=== PATIENT | female | born 1995 | race Caucasian/White ===

== ENCOUNTER → 2022-08-24 | Outpatient (CLI) | payer BC, SELFPAY ==
[2022-08-24 18:01] LABS: Absolute Lymphocyte Count 2.43 X10^3/uL (0.83-4.51); Basophil# 0.04 X10^3/uL; Basophil% 0.7 % (0-1); Eosinophil# 0.07 X10^3/uL; Eosinophils% 1.2 % (0-5); Hematocrit 43.2 % (37-47); Hemoglobin 15.1 g/dL (12.0-15.0); Lymphocyte # 2.43 X10^3/ul (0.83-4.51); Lymphocyte % 41.6 % (19-41); Mean Corpuscular Hgb 31.5 pg (27.0-32.0); Mean Corpuscular Volume 90.2 fL (81-99); Mean Platelet Vol. 11.8 fl (6.2-12.0); Monocyte# 0.34 X10^3/uL; Monocyte% 5.8 % (0-10); NRBC Flagged by Analyzer 0 % (0-5); Neutrophil # 2.95 X10^3/uL (2.7-7.7); Neutrophil % 50.5 % (47-70); Platelet Count 233 K/mm3 (150-450); RBC Distribution Width CV 11.6 % (11.6-14.6); RBC Distribution Width SD 38.4 fl (35.1-43.9); Red Blood Count 4.79 M/mm3 (4.2-5.4); White Blood Count 5.8 K/mm3 (4.4-11.0)
[2022-08-24 19:35] LABS: ALB/GLOB Ratio 1.1 RATIO (0.9-2.4); AST(SGOT) 17 U/L (15-37); Alanine Aminotransfer ALT/SGPT 27 U/L (13-56); Albumin, Serum 3.6 g/dL (3.2-5.0); Alkaline Phosphatase 72 U/L (45-117); Anion Gap 6 (5-15); BUN 11 mg/dL (7-18); BUN/Creat Ratio 13.9 RATIO (10-20); Calcium,Total 8.9 mg/dL (8.5-10.1); Chloride 108 mmol/L (98-107); Creatinine, Serum 0.79 mg/dL (0.55-1.02); EST Glomerular Filtration Rate 92 mL/min (>60); Est Glom Filt Rate - Afr Amer 112 mL/min (>60); Globulin 3.4 g/dL (2.2-4.2); Glucose 79 mg/dL (74-106); Potassium 3.8 mmol/L (3.5-5.1); Rheumatoid Factor < 10.0 IU/mL (<15); Sodium Level 139 mmol/L (136-145)
[2022-08-25 08:50] LABS: Hepatitis B Surface Antibody Non-Reactive; Hepatitis B Surface Antigen Non-Reactive (Nonreactive); Hepatitis C Antibody Non-Reactive (Nonreactive)
[2022-08-27 15:56] LABS: CCP IgG Antibodies 2 units (0-19)
== END | disposition home or self-care (01) ==
LOC: MTLAB 14:16
PROVIDERS: PCP Student in an Organized Health Care Education/Training Program; Referring Provider Internal Medicine Rheumatology; Visit Provider Internal Medicine Rheumatology
DX: M06.4 Inflammatory polyarthropathy (principal); M79.7 Fibromyalgia; M24.9 Joint derangement, unspecified; E28.2 Polycystic ovarian syndrome; N80.9 Endometriosis, unspecified; K58.2 Mixed irritable bowel syndrome; R51.9 Headache, unspecified; F32.A Depression, unspecified; F41.9 Anxiety disorder, unspecified; K21.9 Gastro-esophageal reflux disease without esophagitis
CPT/HCPCS: 36415; 80053; 85025; 86200; 86431; 86706; 86803; 87340

== ENCOUNTER → 2024-11-27 | Outpatient (CLI) | payer BC, SELFPAY ==
[2024-11-27 15:02] LABS: Erythrocyte Sedimentation Rate 2 mm/hr (0-30)
[2024-11-27 15:47] LABS: CRP < 2.90 mg/L (0.0-3.0); LDH 161 U/L (84-246)
[2024-12-01 11:08] LABS: Alternaria alternata <0.10 kU/L (Class 0); Anti-Centromere B Ab <0.2 AI (0.0-0.9); Anti-Chromatin 0.2 AI (0.0-0.9); Anti-Jo <0.2 AI (0.0-0.9); Anti-Scleroderma-70 AB <0.2 AI (0.0-0.9); Anti-dsDNA Ab <1 IU/mL (0-9); Beef <0.10 kU/L (Class 0); Bermuda Grass <0.10 kU/L (Class 0); Bluegrass, Kentucky <0.10 kU/L (Class 0); Cat Hair/Dander, Standard <0.10 kU/L (Class 0); Chocolate <0.10 kU/L (Class 0); Codfish <0.10 kU/L (Class 0); Corn <0.10 kU/L (Class 0); D farinae Mite <0.10 kU/L (Class 0); D pteronyssinus <0.10 kU/L (Class 0); Dog Epithelia <0.10 kU/L (Class 0); Egg, Whole <0.10 kU/L (Class 0); Elm, American White <0.10 kU/L (Class 0); Milk (Cow) <0.10 kU/L (Class 0); Mouse Urine <0.10 kU/L (Class 0); Mussels <0.10 kU/L (Class 0); Oak, White <0.10 kU/L (Class 0); Peanut <0.10 kU/L (Class 0); Plantain, English <0.10 kU/L (Class 0); Pork <0.10 kU/L (Class 0); RNP Ab <0.2 AI (0.0-0.9); Ragweed, Short/Common <0.10 kU/L (Class 0); SJOGREN'S Anti-SS-A test 0.4 AI (0.0-0.9); SJOGREN'S Anti-SS-B test < 0.2 AI (0.0-0.9); Salmon <0.10 kU/L (Class 0); Shrimp <0.10 kU/L (Class 0); Smith Ab <0.2 AI (0.0-0.9); Soybean <0.10 kU/L (Class 0); Tuna <0.10 kU/L (Class 0); Wheat <0.10 kU/L (Class 0)
[2024-12-01 14:08] LABS: ACCA 5 units (0-90); ALCA 7 units (0-60); AMCA 26 units (0-100); Angiotensin Convert Enzyme 40 U/L (14-82); Cytoplasmic Ab (C-ANCA) <1:20 titer (Neg:<1:20); Endomysial Antibody IgA Negative (Negative); Immunoglobulin A 350 mg/dL (87-352); Immunoglobulin E 11 IU/mL (6-495); Immunoglobulin G 690 mg/dL (586-1602); Immunoglobulin M 105 mg/dL (26-217); Perinuclear Ab (P-ANCA) <1:20 titer (Neg:<1:20); gASCA 8 units (0-50); t-Transglutaminase IgA <2 U/mL (0-3)
== END | disposition home or self-care (01) ==
PROVIDERS: PCP Student in an Organized Health Care Education/Training Program; Referring Provider Internal Medicine Gastroenterology; Visit Provider Internal Medicine Gastroenterology
DX: K21.9 Gastro-esophageal reflux disease without esophagitis (principal); R10.9 Unspecified abdominal pain
CPT/HCPCS: 36415; 82164; 82784; 82785; 82941; 83516; 83615; 84443; 85652; 86003; 86005; 86036; 86037; 86140; 86225; 86235; 86255; 86671

== ENCOUNTER → 2024-12-18 | Outpatient (CLI) | payer BC, SELFPAY ==
--- NOTE | 2024-12-18 10:38 | NM_ITS ---
PROCEDURE: GASTRIC EMPTYING STUDY REASON FOR EXAM: Nausea. Abdominal pain. TECHNIQUE: The patient ingested a mixture of oatmeal and 1.1 mCi of technetium labeled sulfur colloid. RADIOPHARMACEUTICAL: 1.1 mCi of technetium labeled sulfur colloid. COMPARISON: None. FINDINGS: Delayed gastric emptying. The T1 half is 83.4 minutes. NM/Gastric Emptying Study IMPRESSION: Abnormal gastric emptying study. Reading Location: [id number]
== END | disposition home or self-care (01) ==
PROVIDERS: PCP Student in an Organized Health Care Education/Training Program; Referring Provider Internal Medicine Gastroenterology; Visit Provider Internal Medicine Gastroenterology
DX: K21.9 Gastro-esophageal reflux disease without esophagitis (principal); R10.9 Unspecified abdominal pain
CPT/HCPCS: 78264; A9541

== ENCOUNTER → 2025-02-02 | Outpatient (CLI) | payer BC, SELFPAY ==
--- NOTE | 2025-02-02 07:40 | NM_ITS ---
PROCEDURE: GASTRIC EMPTYING STUDY - 4 HR 02/02/2025 REASON FOR EXAM: GASTROPARESIS COMPARISON: GASTRIC EMPTYING STUDY DATED 12/18/2024. TECHNIQUE: Half-life: 68 MINUTES Gastroesophageal reflux: None. The patient ingested a standard meal of 1 cup of oatmeal with the radiopharmaceutical. Following ingestion, anterior and posterior gamma camera images were acquired at 1, 2, 3, AND 4 HOURS. Regions of interest were drawn, and a geometric mean was used to calculate a [id number]. Medications taken in the past 24 hours that may affect gastric emptying: None Radiopharmaceutical: mCi of Technetium Sulfur Colloid in oatmeal. FINDINGS: Percent activity remaining in stomach: 1 hour: 0 % 2 hours: 55 % (normal 30-60%) 3 hours: 28% 4 hours: 1 % (normal 0-10%) NM/Gastric Emptying Study - 4 HR IMPRESSION: THE ACTIVITY REMAINING IN THE STOMACH AT 2 AND 4 HOURS IS WITHIN THE NORMAL RAN GE FOR GASTRIC EMPTYING. Reading Location: [place] [id number]
== END | disposition home or self-care (01) ==
LOC: NM 07:37
PROVIDERS: PCP Student in an Organized Health Care Education/Training Program; Referring Provider Internal Medicine Gastroenterology; Visit Provider Internal Medicine Gastroenterology
DX: K31.84 Gastroparesis (principal)
CPT/HCPCS: 78264; A9541

== ENCOUNTER → 2025-03-08 | Outpatient (CLI) | payer BC, SELFPAY ==
[2025-03-08 16:07] LABS: Amylase 65 U/L (28-100); Free T3 3.4 pg/mL (2.18-3.98); Lipase 63 U/L (13-75)
== END | disposition home or self-care (01) ==
LOC: LAB 15:10
PROVIDERS: PCP Student in an Organized Health Care Education/Training Program; Referring Provider Internal Medicine Gastroenterology; Visit Provider Internal Medicine Gastroenterology
DX: R10.9 Unspecified abdominal pain (principal)
CPT/HCPCS: 36415; 82150; 82384; 82533; 83690; 84439; 84443; 84481

== ENCOUNTER → 2025-05-16 | Outpatient (CLI) | payer BC, SELFPAY | END | disposition home or self-care (01) | LOC: LABSPEC 09:28 | PROVIDERS: PCP Student in an Organized Health Care Education/Training Program; Referring Provider Internal Medicine Gastroenterology; Visit Provider Internal Medicine Gastroenterology | DX: R10.9 Unspecified abdominal pain (principal) | CPT/HCPCS: 81050; 82384 ==

== ENCOUNTER 2025-08-17 10:57 | Day surgery (SDC) | payer BC, SELFPAY ==
--- NOTE | 2025-08-16 16:25 | PAT.ANESEVAL ---
Pre-Assessment Diagnosis/Proposed Procedure Planned Operative Procedure(s): EGD Anesthesia History Anesthesia History - sign writer letterer or painter: Anesthesia History - sign writer letterer or painter Hx Hospitalization No 08/14/25 13:54 Any Problems With Anesthesia No 08/14/25 13:54 Cholinesterase deficiency No 08/14/25 13:54 You/Your Family Experience No 08/14/25 13:54 fever (hyperthermia) with Relationship Recent Exposure to Contagious Disease Does patient have nerve No 08/14/25 13:54 stimulator Patient instructed to have device shut off --Does patient have Pacemaker or ICD? When Was Last Pacemaker Check QUESTION #4 FULL TEXT: You/Your Family Experience fever (hyperthermia) with Anesthesia Last Oral Intake Last Oral intake: Last Oral Intake NPO since Meds taken in AM with sips of water? Meds patient instructed to take am of surgery PONV PONV - sign writer letterer or painter: PONV - sign writer letterer or painter Female Yes 08/14/25 13:54 HX of Motion Sickness No 08/14/25 13:54 HX of N/V After Surgery No 08/14/25 13:54 Non-Smoker Yes 08/14/25 13:54 Duration of Surgery greater No 08/14/25 13:54 than 60 minutes Number of Risk Factors 2 08/14/25 13:54 PONV Score Moderate Risk 08/14/25 13:54 Respiratory Assessment Respiratory Assessment - sign writer letterer or painter: Respiratory Tract Infection Hx - sign writer letterer or painter Hx Respiratory Tract Infection No 08/14/25 13:54 STOP Sleep Apnea STOP Sleep Apnea - sign writer letterer or painter: STOP Sleep Apnea - sign writer letterer or painter Hx Hypertension No 08/14/25 13:54 Hx Sleep Apnea No 08/14/25 13:54 CPAP BIPAP Do you snore loudly (louder No 08/14/25 13:54 than talking or can be heard Do you often feel tired/ No 08/14/25 13:54 fatigued/ sleepy during daytime? Has anyone observed you stop No 08/14/25 13:54 breathing during sleep? STOP Results Negative 08/14/25 13:54 QUESTION #5 FULL TEXT : Do you snore loudly (louder than talking or can be heard through closed doors)? Tobacco Use History Tobacco Use History - sign writer letterer or painter: Tobacco Use History - sign writer letterer or painter Tobacco Use Smoking Status Never smoker 08/14/25 13:54 Hx Tobacco Use No 08/14/25 13:54 Years Smoking Packs Smoked per Day Smoking Cessation Date was within the last 15 years Hx Smoking Cessation Date Hx Smoking Cessation Counseling Hematologic Medial History Hematologic Hx - sign writer letterer or painter: Hematologic Medical Hx - bundler Hx of Blood Transfusion No 08/14/25 13:54 Hx of Transfusion in last 3 No 08/14/25 13:54 Months Date of Last Transfusion (if within last 3 months) Ever experience any problems No 08/14/25 13:54 with transfusion(s)? Specify any problems Hx of Preganancy in last 3 N/A 08/14/25 13:54 Months Nurse Filling Out Transfusion NBUCHER 08/14/25 13:54 & Questions: Date: 08/14/25 08/14/25 13:54 Time: 13:55 08/14/25 13:54 Patient unable to answer at this time (ie. confused, unrespo /Reproduction History /Reproductive History - sign writer letterer or painter: /Reproductive Hx- sign writer letterer or painter Hx Now No 08/14/25 13:54 Gestational Age (in weeks): EDC: Hx Hx Para Hx Section SAB No 08/14/25 13:54 PFSH Medical History (Updated 08/14/25 @ 14:00 by Yenni Taylor) Wears glasses Rheumatoid arthritis Syncope History of IBS Heartburn Gastric reflux Non-smoker POTS (postural orthostatic tachycardia syndrome) Home Medications Medication Instructions Recorded Last Taken Type folic acid 1 mg tablet 1 mg PO BID 04/18/24 Unknown History hydroxychloroquine 200 mg tablet 200 mg PO BID 11/27/24 Unknown History (Plaquenil) methotrexate sodium 2.5 mg tablet 15 mg PO QWEEK 11/27/24 Unknown History omeprazole 40 mg capsule,delayed 40 mg PO QDAY 07/13/25 Unknown History release norethindrone 1 mg-ethinyl 1 tab PO DAILY 08/14/25 Unknown History estradiol 20 mcg (21)-iron 75 mg (7) tablet (Kelly Fe 11/13 (28)) Allergy/AdvReac Type Severity Reaction Status Date / Time amoxicillin Allergy Severe Hives Verified 08/14/25 13:51 Surgical History (Updated 08/14/25 @ 14:00 by Yenni Taylor) History of surgery on arm History of cholecystectomy History of colonoscopy History of esophagogastroduodenoscopy (EGD) Social History Smoking Status: Never smoker Audit: Pertinent Findings Pertinent Findings Consult pertinent findings: Cardiology visit outside hospital 09/22/2022. Presyncope. After hearing her symptoms I agree that POTS is likely the culprit here. Her EKG today is normal and examination is unremarkable. To confirm the diagnosis I am going to get a stress treadmill and we will check her orthostatic heart rate and blood pressure with that see what she can do on the treadmill see if she is having any arrhythmia. Check Holter monitor 7-day. Check echo. I will see her back in 6 months. Recommendation Anesthesia Recommendation Anesthesia recommendation: OPTIMIZED for anesthesia (Please check with the patient on day of surgery if the tests that were recommended by or cardiology were done. Given her young age and if there are no other symptoms I would say that she could be okay for the EGD. Please review with the anesthesiologist on the day of the procedure.)
[2025-08-17] VITALS (9 sets, daily range): BP systolic 94–115; BP diastolic 54–80; PULSE 63–89; RESP 16; TEMP 36.2–36.9; O2SAT 99–100; BMI 33.5
[2025-08-17 11:20] LABS: Internal QC Validated? YES +Cl - CLEAR BKGD; Pregnancy, Urine Negative Negative; Record Kit Lot#,Urine Preg 0000980607
[2025-08-17] MEDS: Lactated Ringers 1,000 ML 15 ML IV (11:25)
--- NOTE | 2025-08-17 11:52 | SUR.PREOP ---
teaching done about ph probe
--- NOTE | 2025-08-17 12:00 | EGD_PTH ---
PATIENT: YENY DOMINIQUE LOC: EN U#:[id number] AGE/SX: 30/F ROOM: RE08/17/[address]: Dr. Mahamed Angeles DO : 1995 BED: DIS: 08/17/2025 SPEC #: [id number] RECD: 08/17/25 14:05 STATUS: CAROL REJunior #: [id number] RONALD: 08/17/25 12:[address]: Mahamed Angeles DEPT: SURGICAL PATHOLOGY RECD BY: Ej Meyer ENTERED: 08/17/25 15:07 SP TYPE: EGD BIOPSY OT DR: LLOYD LOUIS DO Tissues: A - Duodenum, NOS B - Gastric mucous membrane Procedures: Immunohistochemical Stains Surgery Specimen Level IV HEADER OPERATION: EGD with PH probe placement and biopsy PRE-OP DIAGNOSIS: Gastroenteritis, abdominal pain, gastro-esophageal reflux disease without esophagitis, chronic steatorrhea, abdominal cramping TISSUE SUBMITTED: A- Duodenum biopsy, B- Gastric body biopsy MICROSCOPIC DIAGNOSIS A. Duodenum, biopsy: - Tristan gland hyperplasia with gastric mucin cell metaplasia, suggestive of peptic injury. - Negative for increased intraepithelial lymphocytes. B. Gastric body, biopsy: - Oxyntic mucosa with features of reactive gastropathy. - IHC negative for H. pylori organisms. MICROSCOPIC DESCRIPTION Slides are reviewed. All matched controls reacted appropriately. These tests were developed and their performance characteristics determined by [facility]. They may not have been cleared or approved by the U.S. Food and Drug Administration. The FDA has determined that such clearance or approval is not necessary. The above immunohistochemical markers and/or special stains have been reviewed by the Pathologist. GROSS DESCRIPTION A. Received in fixative is one container labeled with the patient's name and designated "Duodenum biopsy." The specimen consists of two irregular fragments of cameron tissue, each measuring 0.5 cm. The specimen is totally submitted in one cassette. B. Received in fixative is one container labeled with the patient's name and designated "Gastric body biopsy." The specimen consists of two irregular fragments of cameron tissue that measure 0.3 and 0.6 cm. The specimen is totally submitted in one cassette. MT 08/17/2025 CPT:44664h3,26083
--- NOTE | 2025-08-17 12:13 | HP.PCM_ITS ---
HPI - General General Date of Admission: 08/17/25 Date of Service: 08/17/25 Chief Complaint: Refractory GERD and dysphagia HPI Narrative *BGI established 2.3.25 pt reports a long history of alternating bowel movements. Pt reports worsening abd cramping and nausea after eating or if she falls asleep shortly after eating. Pt reports that her nausea is the worst in the evening after she has had a "substantial meal". Pt reports frequent bloating and gas. Pt reports that she has cut gluten out of her diet and has noticed some improvement in symptoms. Gastric Emptying Study- 12.18.24- Abnormal time 83.4mins Gastric Emptying Study 4-hr 4.11.25- 1 hour: 0 %, 2 hours: 55 % (normal 30- 60%), 3 hours: 28%, 4 hours: 1 % (normal 0-10%) OV 5.15.25- Pt reports continued sx from last visit. Is here to go over test results. No other changes. OV 8.4.25 pt reports ongoing symptoms from previous visit. Denies changes in medications, is here to review results. OV 9.19.25 pt reports that she went to the ER a few weeks ago for SOB and chest pain, states that every test came back clean and was put on Omeprazole 40mg daily for acid reflux. Reports she is still having some shortness of breath and feels like there is something stuck in her throat. [facility] Medical History Wears glasses Rheumatoid arthritis Syncope History of IBS Heartburn Gastric reflux Non-smoker POTS (postural orthostatic tachycardia syndrome) Home Medications Medication Instructions Recorded Last Taken Type folic acid 1 mg tablet 1 mg PO BID 04/18/24 Unknown History hydroxychloroquine 200 mg tablet 200 mg PO BID 5 Unknown History (Plaquenil) methotrexate sodium 2.5 mg tablet 15 mg PO QWEEK 11/27 Unknown History omeprazole 40 mg capsule,delayed 40 mg PO QDAY 5 Unknown History release norethindrone 1 mg-ethinyl 1 tab PO DAILY 08/14/25 Unk nown History estradiol 20 mcg (21)-iron 75 mg (7) tablet (Kelly Fe 11/13 ()) Allergy/AdvReac Type Severity Reaction Status Date / Time amoxicillin Allergy Severe Hives Verified 08/17/25 11:16 Surgical History History of surgery on arm History of cholecystectomy History of colonoscopy History of esophagogastroduodenoscopy (EGD) Social History Smoking Status: Never smoker ROS Constitutional Constitutional: Denies fatigue, fever(s), poor appetite, weight gain or weight loss Gastrointestinal Gastrointestinal: Denies belching, bloating, change in bowel habits, change in stool character, chewing difficulty, coffee ground emesis, constipation, cramping, diarrhea, dyspepsia, dysphagia, early satiety, excessive flatus, fecal incontinence, heartburn, hematemesis, hematochezia, hemorrhoids, loose stools, melena, nausea, odynophagia, rectal bleeding, tenesmus, vomiting or weight changes Vital Signs Vital Signs Vital Signs: 08/17/25 11:17 08/17/25 11:17 Temperature 97.1 F L Temperature Source Temporal Pulse Rate 72 Respiratory Rate 16 Respiratory Pattern Normal Blood Pressure 115/69 Blood Pressure Mean 84 Blood Pressure Source Monitor Blood Pressure Position Semi-Fowlers Blood Pressure Location Right Arm Pulse Ox 100 Oxygen Delivery Method Room Air Weight Weight: 195 lb 1.745 oz Body Mass Index (BMI) 33.5 Physical Exam Const alert, oriented x3, no apparent distress and healthy appearing General Appearance: cooperative GI normal to inspection, nondistended, normoactive bowel sounds, soft to palpation, non-tender and non-distended Percussion: normal to percussion Rectal Exam: deferred Results Lab / Micro Data Labs: Laboratory Results - last 24 hr 08/17/25 11:10: Urine Test Negative Assessment & Plan Assessment/Plan (1) Gastro-esophageal reflux disease without esophagitis: (2) Abdominal pain: PLAN: Assessment and Plan Assessment and Plan (1) Gastroenteritis: (2) Abdominal pain: Status: Acute (3) Gastro-esophageal reflux disease without esophagitis: Status: Acute (4) Chronic steatorrhea: Status: Acute (5) Abdominal cramping: Status: Acute Plan: 30 yo with GERD, globus sensation, chest pain after getting her gallbladder removed Her symptoms such as GERD, globus sensation, and chest pain after gallbladder removal are known as Post-cholecystectomy Syndrome (PCS). While no specific case report involving a 30-year-old woman with this exact combination was found, this collection of symptoms is a recognized phenomenon that can occur in some individuals following the procedure. Post-cholecystectomy syndrome (PCS) PCS is a general term describing persistent gastrointestinal symptoms after a cholecystectomy (gallbladder removal). It can be a continuation of the original symptoms or new issues that arise after surgery. These symptoms can emerge immediately or years later and range from mild to severe. GERD and bile reflux After the gallbladder is removed, the flow of bile into the small intestine is no longer regulated by a storage organ. The continuous drip of bile can irritate the stomach and esophagus, potentially leading to or worsening GERD symptoms. Some evidence suggests that bile reflux increases after the procedure, which can lead to heartburn and a burning sensation in the chest. Globus sensation A feeling of a "lump in the throat," known as globus sensation, is often associated with GERD. The reflux of stomach acid and bile can cause irritation and inflammation in the pharynx, which can produce this uncomfortable sensation. While some studies show that proton pump inhibitors (PPIs) are not more effective than a placebo for globus sensation without reflux, aggressive treatment is recommended when reflux is a factor. Chest pain Chest pain after gallbladder removal can be a result of several factors: * Acid/bile reflux: Reflux of stomach acid and bile can cause a burning sensation in the chest, mimicking cardiac pain. * Gas entrapment: During laparoscopic surgery, carbon dioxide is used to inflate the abdomen. Pockets of this residual gas can cause referred pain in the chest area and near the diaphragm. * Biliary complications: While rare, complications like bile leakage or duct injury can cause severe chest pain and other symptoms. * Sphincter of Oddi Dysfunction (SOD): This occurs when the sphincter muscle that regulates the flow of digestive juices becomes dysfunctional. It can cause abdominal pain similar to gallstone pain and sometimes radiate to the chest. * Esophageal dysfunction: Some studies have shown a link between cholecystectomy and lower esophageal dysfunction, which could contribute to chest discomfort. Managing these symptoms A medical evaluation is crucial to determine the exact cause of these symptoms. This can involve: * Reviewing medical history and performing a physical exam * Imaging tests such as an X-ray, CT scan, or MRI (such as MRCP) * Blood work to rule out other complications * An ECG to evaluate for cardiac issues, especially if the pain is severe or persistent * We will get an EGD with Orozco to evaluate the globus sensation to see if she has nonacid reflux, gastroesophageal reflux disease from bile or HCl. She may also need manometry. Management can include: * Medication: A doctor may prescribe medication to manage acid reflux or other symptoms. * Dietary changes: Limiting fatty and spicy foods, eating smaller meals, and avoiding trigger foods can be helpful. * Lifestyle modifications: Maintaining a healthy weight and staying upright after eating can help manage reflux. ]
--- NOTE | 2025-08-17 12:25 | PRE.ANES_ITS ---
ASA Classification* ASA Classification ASA Classification: 2 Assessment & Plan Anesthesia* Anesthesia Assessment Anesthesia Assessment: Discussed sedation and/or anesthesia options, risks, benefits, and alternatives with patient/parents/legal guardian/POA. Questions invited. The patient/parents/legal guardian/POA seems to understand and agrees to proceed with anesthesia plan. Reviewed the physical assessment, medical history, allergy history and patient home medications list prior to surgery/procedure/anesthetic and documented any changes. Performed airway and anesthesia risk assessments. Anesthesia Type Anesthesia Type: MAC History Source History Obtained from:: Patient and Chart Anesthesia Focused Assessment* Temperature: 97.1 F Pulse Rate: 72 Blood Pressure: 115/69 Respiratory Rate: 16 Pulse Ox: 100 Oxygen Delivery Method: Room Air Airway Assessment Mouth opens: >3 cm Mallampati Score: II Teeth Condition: Intact (Some are chipped. ) Neck Range of motion (ROM): Full ROM Labs Anesthesia Preop lab: CBC WBC, (4.4-11.0) 5.8 K/mm3 08/24/22, 14:18 RBC, (4.2-5.4) 4.79 M/mm3 08/24/22, 14:18 Hgb, (12.0-15.0) 15.1 g/dL H 08/24/22, 14:18 Hct, (37-47) 43.2 % 08/24/22, 14:18 Plt Count, (150-450) 233 K/mm3 08/24/22, 14:18 CHEMISTRY Potassium, (3.5-5.1) 3.8 mmol/L 08/24/22, 14:18 Sodium, (136-145) 139 mmol/L 08/24/22, 14:18 BUN, (7-18) 11 mg/dL 08/24/22, 14:18 Creatinine, (0.55-1.02) 0.79 mg/dL 08/24/22, 14:18 Glucose, (74-106) 79 mg/dL 08/24/22, 14:18 TSH, (0.300-4.200) 2.240 uIU/mL 03/08/25, 15:13 COAG Urine Test Negative Negative Today, 11:10 Pre-Assessment Diagnosis/Proposed Procedure Planned Operative Procedure(s): EGD Anesthesia History Anesthesia History - information technology consultant: Anesthesia History - information technology consultant Hx Hospitalization No 08/14/25 13:54 Any Problems With Anesthesia No 08/14/25 13:54 Cholinesterase deficiency No 08/14/25 13:54 You/Your Family Experience No 08/14/25 13:54 fever (hyperthermia) with Relationship Recent Exposure to Contagious Disease Does patient have nerve No 08/14/25 13:54 stimulator Patient instructed to have device shut off --Does patient have Pacemaker No 08/17/25 11:17 or ICD? When Was Last Pacemaker Check QUESTION #4 FULL TEXT: You/Your Family Experience fever (hyperthermia) with Anesthesia Any additional information?: No Last Oral Intake Last Oral intake: Last Oral Intake NPO since 22:00 08/17/25 11:17 Meds taken in AM with sips of No 08/17/25 11:17 water? Meds patient instructed to take am of surgery Any additional information?: No PONV PONV - information technology consultant: PONV - information technology consultant Female Yes 08/14/25 13:54 HX of Motion Sickness No 08/14/25 13:54 HX of N/V After Surgery No 08/14/25 13:54 Non-Smoker Yes 08/14/25 13:54 Duration of Surgery greater No 08/14/25 13:54 than 60 minutes Number of Risk Factors 2 08/14/25 13:54 PONV Score Moderate Risk 08/14/25 13:54 Any additional information?: No Height & Weight Height & Weight: Anesthesia: Height & Weight Height 5 ft 4 in 08/17/25 11:17 Weight: 88.5 kg 08/17/25 11:17 Body Mass Index (BMI) 33.5 08/17/25 11:17 Respiratory Assessment Respiratory Assessment - information technology consultant: Respiratory Tract Infection Hx - information technology consultant Hx Respiratory Tract Infection No 08/14/25 13:54 Any additional information?: No STOP Sleep Apnea STOP Sleep Apnea - information technology consultant: STOP Sleep Apnea - information technology consultant Hx Hypertension No 08/14/25 13:54 Hx Sleep Apnea No 08/14/25 13:54 CPAP BIPAP Do you snore loudly (louder No 08/14/25 13:54 than talking or can be heard Do you often feel tired/ No 08/14/25 13:54 fatigued/ sleepy during daytime? Has anyone observed you stop No 08/14/25 13:54 breathing during sleep? STOP Results Negative 08/14/25 13:54 QUESTION #5 FULL TEXT : Do you snore loudly (louder than talking or can be heard through closed doors)? Any additional information?: No Tobacco Use History Tobacco Use History - information technology consultant: Tobacco Use History - information technology consultant Tobacco Use Smoking Status Never smoker 08/14/25 13:54 Hx Tobacco Use No 08/14/25 13:54 Years Smoking Packs Smoked per Day Smoking Cessation Date was within the last 15 years Hx Smoking Cessation Date Hx Smoking Cessation Counseling Any additional information?: No Hematologic Medial History Hematologic Hx - information technology consultant: Hematologic Medical Hx - orthodontist assistant Hx of Blood Transfusion No 08/14/25 13:54 Hx of Transfusion in last 3 No 08/14/25 13:54 Months Date of Last Transfusion (if within last 3 months) Ever experience any problems No 08/14/25 13:54 with transfusion(s)? Specify any problems Hx of Preganancy in last 3 N/A 08/14/25 13:54 Months Nurse Filling Out Transfusion NBUCHER 08/14/25 13:54 & Questions: Date: 08/14/25 08/14/25 13:54 Time: 13:55 08/14/25 13:54 Patient unable to answer at this time (ie. confused, unrespo Any additional information?: No /Reproduction History /Reproductive History - information technology consultant: /Reproductive Hx- information technology consultant Hx Now No 08/14/25 13:54 Gestational Age (in weeks): EDC: Hx Hx Para Hx Section SAB No 08/14/25 13:54 Any additional information?: No Active Medications Active Medications: Current Medications Generic Name Dose Route Start Last Admin Trade Name Freq PRN Reason Stop Dose Admin Lactated Ringer's 1,000 mls @ 15 mls/hr 08/17/25 11:15 08/17/25 11:25 IV 15 mls/hr .Q48H MAE Administration PFSH Medical History Wears glasses Rheumatoid arthritis Syncope History of IBS Heartburn Gastric reflux Non-smoker POTS (postural orthostatic tachycardia syndrome) Home Medications Medication Instructions Recorded Last Taken Type folic acid 1 mg tablet 1 mg PO BID 04/18/24 Unknown History hydroxychloroquine 200 mg tablet 200 mg PO BID 5 Unknown History (Plaquenil) methotrexate sodium 2.5 mg tablet 15 mg PO QWEEK 11/27 Unknown History omeprazole 40 mg capsule,delayed 40 mg PO QDAY 5 Unknown History release norethindrone 1 mg-ethinyl 1 tab PO DAILY 08/14/25 Unk nown History estradiol 20 mcg (21)-iron 75 mg (7) tablet (Kelly Fe 11/13 (28)) Allergy/AdvReac Type Severity Reaction Status Date / Time amoxicillin Allergy Severe Hives Verified 08/17/25 11:16 Surgical History History of surgery on arm History of cholecystectomy History of colonoscopy History of esophagogastroduodenoscopy (EGD) Social History Smoking Status: Never smoker Review of Systems (Anesthesia) ROS Narrative System reviewed and no additional complaints, except as documented.
--- NOTE | 2025-08-17 12:56 | OP.PROVAT_ITS ---
08/17/2025 [place] Do Re : Upper GI endoscopy procedure for Mariia Jean Dear Ximena This procedure was performed on Sunday, August 17, 2025. My impressions and recommendations are as follows: Impressions : - Normal esophagus. - Clear gastric fluid. - Erosive gastropathy with no bleeding and no stigmata of recent bleeding. Biopsied. - Erythematous duodenopathy. Biopsied. - The VIVAS pH capsule was positioned 36 cm from the incisors, which was 6 cm proximal to the GE junction. Recommendations : - Discharge patient to home. - Resume previous diet. - Continue present medications. - Await pathology results. My findings are described in the full procedure note, which is enclosed. If I can be of further assistance, please feel free to contact me at . Sincerely, Mahamed Angeles, 08/17/2025 12:55:37 PM This report has been signed electronically.
--- NOTE | 2025-08-17 12:56 | OP.EGD_ITS ---
Patient Name: Mariia Jean Procedure Date: 08/17/2025 12:17 PM Date of : 1995 Age: 30 Procedure: Upper GI endoscopy Indications: Epigastric abdominal pain, Functional Dyspepsia, Indigestion, Suspected non-erosive esophageal reflux, Failure to respond to medical treatment Providers: Mahamed Angeles DO Referring MD: Juana Bueno Do Medicines: Monitored Anesthesia Care Patient Profile: This is a 30 year old female. Refer to note in patient chart for documentation of history and physical. Patient has symptoms of chronic abdominal cramping, chronic epigastric abdominal pain, chronic dyspepsia, chronic heartburn and chronic nausea. Complications: No immediate complications. Procedure: Pre-Anesthesia Assessment: - Prior to the procedure, a History and Physical was performed, and patient medications and allergies were reviewed. The patient is competent. The risks and benefits of the procedure and the sedation options and risks were discussed with the patient. All questions were answered and informed consent was obtained. Patient identification and proposed procedure were verified by the physician in the pre-procedure area. Mental Status Examination: alert and oriented. Airway Examination: normal oropharyngeal airway and neck mobility. Respiratory Examination: clear to auscultation. CV Examination: normal. Prophylactic Antibiotics: The patient does not require prophylactic antibiotics. Prior Anticoagulants: The patient has taken no anticoagulant or antiplatelet agents except for NSAID medication. ASA Grade Assessment: II - A patient with mild systemic disease. After reviewing the risks and benefits, the patient was deemed in satisfactory condition to undergo the procedure. The anesthesia plan was to use monitored anesthesia care (MAC). Immediately prior to administration of medications, the patient was re-assessed for adequacy to receive sedatives. The heart rate, respiratory rate, oxygen saturations, blood pressure, adequacy of pulmonary ventilation, and response to care were monitored throughout the procedure. The physical status of the patient was re-assessed after the procedure. After obtaining informed consent, the endoscope was passed under direct vision. Throughout the procedure, the patient's blood pressure, pulse, and oxygen saturations were monitored continuously. The Endoscope was introduced through the mouth, and advanced to the third part of the duodenum. Small bowel enteroscopy was deemed necessary. The upper GI endoscopy was accomplished without difficulty. The patient tolerated the procedure well. Scope In: 12:41:28 PM Scope Out: 12:48:50 PM Total Procedure Duration Time 0 hours 7 minutes 22 seconds Findings: The examined esophagus was normal. The VIVAS capsule with delivery system was introduced through the mouth and advanced into the esophagus, such that the VIVAS pH capsule was positioned 36 cm from the incisors, which was 6 cm proximal to the GE junction. Suction was applied to the well of the VIVAS pH capsule to suck in the adjacent mucosa of the esophagus using the external vacuum pump set at a minimum vacuum pressure of 550 mmHg for 30 seconds. The VIVAS pH capsule was then deployed by depressing the plunger on top of the handle to advance the locking pin into the mucosa, thereby attaching the capsule to the esophagus. The plunger was then rotated a quarter turn clockwise to release the capsule from the delivery system. The delivery system was then withdrawn. Endoscopy was utilized for probe placement and diagnostic evaluation. Clear fluid was found in the gastric body. A few localized 2 mm erosions with no bleeding and no stigmata of recent bleeding were found in the gastric body and in the gastric antrum. Biopsies were taken with a cold forceps for histology. Biopsies were taken with a cold forceps for Helicobacter pylori testing. Verification of patient identification for the specimen was done. Estimated blood loss was minimal. Patchy mildly erythematous mucosa without active bleeding and with no stigmata of bleeding was found in the duodenal bulb, in the first portion of the duodenum and in the second portion of the duodenum. Biopsies were taken with a cold forceps for histology. Verification of patient identification for the specimen was done. Estimated blood loss was minimal. Impression: - Normal esophagus. - Clear gastric fluid. - Erosive gastropathy with no bleeding and no stigmata of recent bleeding. Biopsied. - Erythematous duodenopathy. Biopsied. - The VIVAS pH capsule was positioned 36 cm from the incisors, which was 6 cm proximal to the GE junction. Recommendation: - Discharge patient to home. - Resume previous diet. - Continue present medications. - Await pathology results. Procedure Code(s): --- Professional --- 68857, Small intestinal endoscopy, enteroscopy beyond second portion of duodenum, not including ileum; with biopsy, single or multiple CPT copyright 2021 [employer]. All rights reserved. The codes documented in this report are preliminary and upon event promoter review may be revised to meet current compliance requirements. Mahamed Angeles DO 08/17/2025 12:55:37 PM This report has been signed electronically. Number of Addenda: 0 Note Initiated On: 08/17/2025 12:17 PM
--- NOTE | 2025-08-17 12:57 | PCM.POST.ANE ---
Anesthesia: Postop Eval I Current Vital Signs Temperature: 98.4 F Pulse Rate: 84 Blood Pressure: 102/80 Respiratory Rate: 16 Pulse Ox: 99 Oxygen Delivery Method: Room Air Assessment Airway patent: Yes Spontaneous unlabored respirations: Yes Mental status: Asleep nausea: No Vomiting: No Anesthesia Complication: No Fluid Hydration Crystalloid volume administer (ml): 400 Total IV fluid infused: 400 Progress Note Anesthesia document: Postop Eval 1 completed: Yes
--- NOTE | 2025-08-17 13:51 | PCM.POSTANE2 ---
Anesthesia Postop Eval I Sum Postop Eval Completion status Anesthesia document: Postop Eval 1 completed: Yes Anesthesia Postop Eval I Summary Anesthesia Postop Eval I Summary: Anesthesia Postop Eval I: Assessment Summary Airway patent Yes 08/17/25 12:58 [email or web address] Spontaneous unlabored Yes 08/17/25 12:58 [email or web address] respirations Mental status Asleep 08/17/25 12:58 [email or web address] nausea No 08/17/25 12:58 [email or web address] Vomiting No 08/17/25 12:58 [email or web address] Anesthesia Postop Eval I: Fluid Summary Crystalloid volume administer 400 08/17/25 12:58 [email or web address] (ml) Colloids volume administered ( ml) Blood Product volume administered (ml) Total IV fluid infused 400 08/17/25 12:58 [email or web address] Anesthesia Postop Eval I: Summary Notes Anesthesia Complication No 08/17/25 12:58 [email or web address] Anesthesia Complication Comment: Post-operative progress note Anesthesia: Postop Eval II Evaluation Mental status: Awake Pain Level: 0 nausea: No Vomiting: No
== END 2025-08-17 13:34 | disposition home or self-care (01) ==
LOC: EN 10:58 → AC 11:00
PROVIDERS: Anesthesiology; PCP Student in an Organized Health Care Education/Training Program; Referring Provider Student in an Organized Health Care Education/Training Program; Visit Provider Internal Medicine Gastroenterology
PROC: 0DJ08ZZ Inspection of Upper Intestinal Tract, Via Natural or Artificial Opening Endoscopic (ICD-10-PCS; CPT 43235; principal; 2025-08-17 11:55)
DX: K52.9 Noninfective gastroenteritis and colitis, unspecified (principal); M06.80 Other specified rheumatoid arthritis, unspecified site; R13.10 Dysphagia, unspecified; K31.89 Other diseases of stomach and duodenum; K21.9 Gastro-esophageal reflux disease without esophagitis; R10.9 Unspecified abdominal pain; K90.9 Intestinal malabsorption, unspecified; Z90.49 Acquired absence of other specified parts of digestive tract; Z79.899 Other long term (current) drug therapy; K31.A19 Gastric intestinal metaplasia without dysplasia, unspecified site
CPT/HCPCS: 44361; 81025; 88305; 88342; J2405